=== PATIENT | male | born 1990 | race African-American/Black ===

== ENCOUNTER 2018-05-18 15:41 | Emergency (ER) | payer OTHER, SELFPAY ==
[2018-05-18] MEDS ORDERED: Acetaminophen 325 MG TAB ONE (16:01)
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
[2018-05-18] MEDS ORDERED: Metoclopramide HCl 10 MG/2 ML VIAL ONE (17:37)
[2018-05-18] MEDS ORDERED: Ketorolac Tromethamine 30 MG/ML VIAL ONE (17:37)
[2018-05-18] MEDS ORDERED: diphenhydrAMINE 50 MG/ML VIAL ONE (17:37)
== END 2018-05-18 19:30 | disposition home or self-care (01) ==
LOC: ERS 15:41
DX: S51.812A Laceration without foreign body of left forearm, initial encounter (principal); S00.03XA Contusion of scalp, initial encounter; V69.88XA Occupant (driver) (passenger) of heavy transport vehicle injured in other specified transport accidents, initial encounter
CPT/HCPCS: 12002; 70450; 72125; 96365; 96375; J1200; J1885; J2765